=== PATIENT | female | born 1945 | race African-American/Black ===

== ENCOUNTER 2018-06-12 19:35 | Inpatient (IN) | payer OTHER ==
[~2018-06-12] VITALS: Ht 157.5 cm; Wt 49.9 kg
[2018-06-12 19:37] VITALS: BP 108/60
[2018-06-12 20:09] LABS: ABSOLUTE NEUTROPHILS 4.5 thou/uL (1.4-8.2); BASOPHILS 0.8 % (0.0-2.0); EOSINOPHILS 0.8 % (0.0-3.0); HEMATOCRIT 37.5 % (37.0-47.0); HEMOGLOBIN 12.5 gm/dL (12.0-15.0); LYMPHOCYTES 35.3 % (24.0-44.0); MCH 31.9 pg (26.0-34.0); MCHC 33.4 g/dL (28.0-37.0); MCV 95.5 fL (80.0-100.0); MONOCYTES 7.1 % (1.0-8.0); PLATELET COUNT 192 thou/uL (150-400); RBC 3.92 mil/uL (4.20-5.00); RDW 13.7 % (10.5-14.5)
[2018-06-12 20:13] LABS: ANION GAP 11 mmol/L (7-16); BUN 15 mg/dL (7-18); CALCIUM 7.2 mg/dL (8.5-10.1); CHLORIDE 115 mmol/L (98-107); CO2 21 mmol/L (21-32); CREATININE 0.6 mg/dL (0.6-1.0); GLUCOSE 125 mg/dL (74-106); SODIUM 147 mmol/L (136-145); TROPONIN-I <0.06 ng/mL (<0.06)
[2018-06-12 20:15] LABS: POTASSIUM 2.6 mmol/L (3.5-5.1)
[2018-06-12 20:35] LABS: URINE BILIRUBIN NEGATIVE (Negative); URINE BLOOD NEGATIVE (Negative); URINE CLARITY CLEAR; URINE COLOR YELLOW; URINE GLUCOSE-RANDOM* NEGATIVE (Negative); URINE KETONES NEGATIVE (Negative); URINE NITRITE-REFLEX NEGATIVE (Negative); URINE PROTEIN (DIPSTICK) NEGATIVE (Negative); URINE UROBILINOGEN 0.2 E.U./dl (0.2-1.0)
[2018-06-12 20:36] LABS: URINE LEUKOCYTES-REFLEX 2+ (Negative)
[2018-06-12 20:43] LABS: AMP/METHAMP Negative (Negative); BARBITURATES Negative (Negative); BENZODIAZEPINES Negative (Negative); COCAINE Negative (Negative); METHADONE Negative (Negative); OPIATES Negative (Negative); PCP Negative (Negative)
[2018-06-12 20:53] LABS: BACTERIA-REFLEX 1-9 Few /HPF (None Seen); CASTS None Seen /LPF (None Seen); CRYSTALS None Seen /LPF (None Seen); SQUAMOUS 4-10 Moderate /LPF (0-3); URINE RBC None Seen /HPF (0-2)
[2018-06-12 21:24] VITALS: BP 112/44
[2018-06-12 21:28] VITALS: BP 112/44
[2018-06-12 21:47] VITALS: BP 131/64
[2018-06-12] MEDS ORDERED: NAMENDA 10 MG T10 MG PO (23:05)
[2018-06-12] MEDS ORDERED: SEROQUEL XR50 MG PO (23:06)
[2018-06-12] MEDS ORDERED: POTASSIUM20 PO (23:07)
[2018-06-12] MEDS ORDERED: NORVASC5 MG PO (23:07)
[2018-06-12] MEDS ORDERED: MIRALAX17 GM PO (23:08)
[2018-06-12] MEDS ORDERED: COLACE100 MG PO (23:08)
--- NOTE | 2018-06-13 03:53 | NUR ---
PATIENT IS ALERT TO SELF PATIENT ANSWERS SOME HX QUESTIONS APPRPIATELY.PATIENT IS NSR ON TELE. PATIENT NEEDS ASSISTANCE TO SET UP TO EAT DUE TO POOR VISION. PATIENT IS GETTING ELECTROLYTE REPLACED PER PROTICOL. PATIENT IS TIMES ONE ASSIST TO BADROOM. PATIENT IS RESTING COMFORTABLY IN BED. WCM. PATIENT IS PROGRESSING TO GOALS.
[2018-06-13 04:58] VITALS: BP 138/75
[2018-06-13 05:25] LABS: CALCIUM 8.8 mg/dL (8.5-10.1); CREATININE 0.7 mg/dL (0.6-1.0); MAGNESIUM 2.6 mg/dL (1.8-2.4)
[2018-06-13 05:49] LABS: POTASSIUM 3.9 mmol/L (3.5-5.1)
[2018-06-13 08:10] VITALS: BP 146/73
[2018-06-13 15:48] VITALS: BP 148/63
--- NOTE | 2018-06-13 18:48 | EKG ---
[address] [address] ELECTROCARDIOGRAM REPORT Name: EJ DIAZ Room #: 354-P ADM IN M.R.#: [id number] ������������������ Admission: 06/12/18 ������������������ Attend Phys: Richard Pierre MD Discharge: ������������������ Date of : 41 Report #: [id number] ����������������������������������������������������������������� [id number] THIS REPORT FOR: //name// [facility] ED Test Date: 2018-06-12 Test Time: 19:39:23 Pat Name: EJ DIAZ Department: Room: [facility] Gender: F Planning Rn: VENUS : 1945 Requested By: Jose Antonio Order Number: [id number] MD: Sebastian Sullivan Measurements Intervals Bison Rate: 70 P: 64 SC: 142 QRS: 32 QRSD: 88 T: 61 QT: 421 QTc: 455 Interpretive Statements Sinus rhythm Early transition Baseline wander Nonspecific ST-T wave changes Compared to ECG 01/21/2008 22:41:07 No significant changes Electronically Signed On 06-13-2018 18:48:25 CDT by Sebastian Sullivan [email or web address] ��������������������������������������������� <ELECTRONICALLY SIGNED> ���������������������������������������� By: Sebastian Sullivan MD ��������������������������������������������� 06/13/18 1848 [id number] 38 Sebastian Sullivan MD /EPI
--- NOTE | 2018-06-13 19:13 | NUR ---
ASSUMED PATIENT6 CARE AT 0700. ALERT TO SELF. ASSISTED WITH EACH MEAL. ANDREW PAIN. PROGRESSING TOWATFS POC GOALS.
[2018-06-13 20:10] VITALS: BP 149/94
--- NOTE | 2018-06-14 02:49 | NUR ---
patient is alert to self. patient is confused has hx of dementia. patient is impulsive and is a fall risk. alarm on. patient has cataracts and can not navigate safely. 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 patient is reciving a couple rounds of antibiotics and hopefully pending dc back to facility today. patient is nsr on tele. patient is sba to the bathroom. patient is contient. patient denies any pain. patient is resting comfortably in bed. oral care and bed change was conducted. wcm. patient is progressing to goals
[2018-06-14 04:30] VITALS: BP 133/80
[2018-06-14 07:15] VITALS: BP 145/74
[2018-06-14 16:44] VITALS: BP 142/91
--- NOTE | 2018-06-14 18:39 | NUR ---
ASSUMED PATIENT CARE AT 0700. ALERT TO SELF. AMBULATED WITH PATIENT . NO DISTRESS NOTED. PROGRESSING TOWARDS POC GOALS.
[2018-06-14 19:14] VITALS: BP 124/74
--- NOTE | 2018-06-15 03:07 | NUR ---
PATIENT IS ALERT TO SELF. PATIENT IS SBA. PATIENT HAS CATARACTS AND IS LEGALLY BLIND. PATIENT IS IMPULISIVE. FALL PRECATIONS IN PLACE. PATIENT IS A FEEDER. PATIENT HAD A BATH THIS SHIFT. PATIENT HAS URINARY FREQUENTCY (MAY BE FROM BOREDOM). PATIENT IS NSR ON TELE. PATIENT IS PENDING DISCHARGE BACK TO FACILITY TODAY. WCM. PATIENT IS RESTING COMFORTABLY.
[2018-06-15 06:10] VITALS: BP 130/72
[2018-06-15 07:58] VITALS: BP 118/67
[2018-06-15 09:36] VITALS: BP 118/67
--- NOTE | 2018-06-15 12:39 | NUR ---
DP faxed clinicals and dc papers to [facility] [place]. Patient will dc today to facility and pickup wc van, no oxygen at 1500 (per Lesa at [facility]). ANASTASIIA spoke with Lesa and dp informed patient's son Rogerio of time. DP ordered chart copy and sent dc papers for cc to Selena Zhangw hospital secretary. DP notified unit of dc time.
--- NOTE | 2018-06-15 14:00 | NUR ---
DC TO [facility]. VIA WHEEL CHAIR REPORT CALLED TO [facility] TO ASSUME CARE OF PT RETURNING NO ISSUES OR CONCERNS NOTED AT THIS TIME.
--- NOTE | 2018-06-15 15:32 | NUR ---
INITIAL ASSESSMENT: Consult received. SW reviewed chart and spoke with attending physician. Pt was admitted from [facility]. Pt is medically stable to return to [facility] today. logistics planner coordinated. No additional SW needs identiifed at this time, but is available to assist should needs arise.
== END 2018-06-15 14:09 | DRG 689 ==
LOC: ER 19:35 → EROBS 20:50 → 3W 20:50
PROVIDERS: Emergency Medicine; Nurse Practitioner Acute Care; ADMIT Hospitalist
DX: N39.0 Urinary tract infection, site not specified (principal); G92 Toxic encephalopathy; E87.6 Hypokalemia; E83.42 Hypomagnesemia; G20 Parkinson's disease; F02.80 Dementia in other diseases classified elsewhere, unspecified severity, without behavioral disturbance, psychotic disturbance, mood disturbance, and anxiety; I10 Essential (primary) hypertension; Z87.891 Personal history of nicotine dependence; Z79.899 Other long term (current) drug therapy; Z88.8 Allergy status to other drugs, medicaments and biological substances
CPT/HCPCS: 10879